=== PATIENT | male | born 1965 | race Caucasian/White ===

== ENCOUNTER 2019-06-30 13:53 | Emergency (ER) | payer SELFPAY ==
[2019-06-30 13:57] VITALS: TEMP 97.9; BMI 20.1
[2019-06-30] MEDS ORDERED: METOCLOPRAMIDE HCL INJECTION 10 MG/2 ML VIAL IVPB ONE (14:29)
[2019-06-30] MEDS ORDERED: SODIUM CHLORIDE 1,000 ML IV STA (14:29)
[2019-06-30] MEDS ORDERED: ACETAMINOPHEN 1000 MG/100 ML VIAL (NON FORMULARY) IVPB ONE (14:29)
[2019-06-30] MEDS ORDERED: ACETAMINOPHEN INJECTION 100 ML IVPB ONE (14:35)
[2019-06-30] MEDS ORDERED: METOCLOPRAMIDE HCL INJECTION 10 MG/2 ML VIAL ONE (14:35)
--- NOTE | 2019-06-30 14:43 | PDOC ---
History of Present Illness - General Chief Complaint: Headache Stated Complaint: HEADACHE Time Seen by Provider: 06/30/19 14:17 History Source: Patient Exam Limitations: No Limitations Past History - Past Medical History Allergies/Adverse Reactions: Allergies Allergy/AdvReac Type Severity Reaction Status Date / Time No Known Allergies Allergy Verified 06/30/19 13:57 COPD: No - Psycho Social/Smoking Cessation Hx Smoking History: Current every day smoker Information on smoking cessation initiated: No *Physical Exam - Vital Signs Last Vital Signs Temp Pulse Resp BP Pulse Ox 97.9 F 90 18 136/73 100 06/30/19 13:55 06/30/19 13:55 06/30/19 13:55 06/30/19 13:55 06/30/19 13:55 - Physical Exam General Appearance: No: Apparent Distress HEENT: positive: EOMI, YASSINE, Other (vision 20/20 R eye, 20/20 L eye, 20/20 both eyes) Respiratory/Chest: positive: Lungs Clear, Normal Breath Sounds. negative: Respiratory Distress Cardiovascular: positive: Regular Rhythm, Regular Rate, S1, S2. negative: Murmur Neurologic: positive: cotton weigher II-XII NML intact, Fully Oriented, Alert, Normal Mood/ Affect, Motor Strength 5/5, Other (normal gait) ED Treatment Course - RADIOLOGY Radiology Studies Ordered: Category Date Time Status HEAD CT WITHOUT CONTRAST [CT] Stat CT Scan 06/30/19 14:29 Ordered Medical Decision Making - Medical Decision Making 54 y/o M with hx of ?anemia presents with R sided RAMIREZ x 2 weeks, not worsened by anything. RAMIREZ is intermittent in nature and gradual in onset. Has tried several OTC meds for his headache including Tylenol, motrin and excedrin but still not feeling relief of RAMIREZ. Mentions only had a headache once before and that was last year when he had the concussion. Mentions has poor vision when it comes to reading at baseline but has not seen an whizzer hand or laboratory veterinarian as he does not like going to doctors. Denies fever, numbness/tingling/weakness of extremities, changes in gait, vomiting. Consider migraine Plan: Tylenol, Reglan, IVF Will get CT head given no hx of headaches 06/30/19 14:38 Patient feeling better after receiving meds Patient sent for CT head and pending results 06/30/19 15:44 Patient reports 0/10 pain currently Pending results of CT head Patient signed out to TONE Levine 06/30/19 16:05 Discharge - Discharge Information Problems reviewed: Yes Clinical Impression/Diagnosis: Headache Qualifiers: Headache type: unspecified Headache chronicity pattern: acute headache Intractability: not intractable Qualified Code(s): R51 - Headache Condition: Improved - Follow up/Referral - Patient Discharge Instructions - Post Discharge Activity
[2019-06-30] MEDS ORDERED: KETOROLAC TROMETHAMINE 30 MG/1 ML VIAL IVPUSH ONE (17:25)
[2019-06-30] MEDS ORDERED: CYCLOBENZAPRINE HCL 10 MG TABLET (FP) PO ONE (17:26)
--- NOTE | 2019-06-30 17:30 | PDOC ---
*Physical Exam - Vital Signs Last Vital Signs Temp Pulse Resp BP Pulse Ox 97.9 F 90 18 136/73 100 06/30/19 13:55 06/30/19 13:55 06/30/19 13:55 06/30/19 13:55 06/30/19 13:55 ED Treatment Course - Medications Given in the ED: ED Medications Discontinued Medications Generic Name Dose Route Start Last Admin Trade Name Jonathan PRN Reason Stop Dose Admin Acetaminophen 1,000 mg 06/30/19 14:29 06/30/19 14:47 Ofirmev Injection - IVPB 06/30/19 14:30 1,000 mg ONCE ONE Administration Sodium Chloride 1,000 mls @ 1,000 mls/hr 06/30/19 14:29 06/30/19 14:47 Normal Saline - IV 06/30/19 15:28 1,000 mls/hr ASDIR STA Administration Metoclopramide HCl 10 mg 06/30/19 14:29 06/30/19 14:43 Reglan Injection - IVPB 06/30/19 14:30 10 mg ONCE ONE Administration Medical Decision Making - Medical Decision Making 06/30/19 17:26 endorsed to me to follow CT scan and dispostion patient seen and examined states the pain is returning will give toradol 30mg IV and flexeril will d/c with follow up with Neuro. CT reviewed with Dr. Tolliver. Discharge - Discharge Information Problems reviewed: Yes Clinical Impression/Diagnosis: Headache Qualifiers: Headache type: unspecified Headache chronicity pattern: acute headache Intractability: not intractable Qualified Code(s): R51 - Headache Condition: Improved Disposition: HOME - Additional Discharge Information Prescriptions: Cyclobenzaprine HCl [Flexeril 10 mg] 10 mg PO TID #30 tablet Ibuprofen [Motrin -] 600 mg PO QID #28 tablet - Follow up/Referral Referrals: Wood Schuster MD [Staff Physician] - - Patient Discharge Instructions Patient Printed Discharge Instructions: DI for Headache Additional Instructions: Your Discharge Instructions: You must call primary care physician within 24 hours to arrange follow-up. Return to the Emergency Department with any new, persistent or worsening symptoms, for fever, chills, SOB, dizziness or any other concerning changes that may occur. Follow-up with neurology call for an appointment - Post Discharge Activity Work/Back to School Note: Back to Work
[2019-06-30] MEDS ORDERED: KETOROLAC TROMETHAMINE 30 MG/1 ML VIAL ONE (18:08)
[2019-06-30] MEDS ORDERED: CYCLOBENZAPRINE HCL 10 MG TABLET (FP) ONE (18:08)
[2019-06-30 18:22] VITALS: BP 132/68; PULSE 81
== END 2019-06-30 18:29 | disposition home or self-care (01) ==
LOC: JER 13:53
PROC: 3E033GC Introduction of Other Therapeutic Substance into Peripheral Vein, Percutaneous Approach (ICD-10-PCS; principal; 2019-06-30)
PROC: 3E033NZ Introduction of Analgesics, Hypnotics, Sedatives into Peripheral Vein, Percutaneous Approach (ICD-10-PCS; 2019-06-30)
PROC: 3E0333Z Introduction of Anti-inflammatory into Peripheral Vein, Percutaneous Approach (ICD-10-PCS; 2019-06-30)
DX: R51 Headache (principal)
CPT/HCPCS: 70450-TC; 99283-25; J0131; J7030

== ENCOUNTER 2019-08-26 17:02 | Emergency (ER) | payer OTHER ==
--- NOTE | 2019-08-26 17:13 | PDOC ---
Rapid Medical Evaluation Chief Complaint: Injury Time Seen by Provider: 08/26/19 17:11 Medical Evaluation: Allergies Allergy/AdvReac Type Severity Reaction Status Date / Time No Known Allergies Allergy Verified 08/26/19 17:11 08/26/19 17:11 This patient had brief medical evaluation in triage cc: injury to left great toe HPI: Patient sent by pmd to r/o infection of left great toe. Patient states s/p injury. A large box fell onto his toe. Report pain intermittently PE: appears well unlabored breathing Orders: xray of left foot/toe labs This patient will proceed to main ed for further evaluation Discharge Disposition - Diagnosis Injury of toe on left foot - Referrals - Patient Instructions - Post Discharge Activity
[2019-08-26 17:14] VITALS: BP 137/81; PULSE 80; TEMP 97.8; BMI 20.1
[2019-08-26 18:02] LABS: BASO % 1.2 % (0-2.0); EOS % 0.8 % (0-4.5); HEMATOCRIT 39.1 % (35.4-49); HEMOGLOBIN 12.9 GM/dL (11.7-16.9); LYMPH % 23.5 % (8-40); MCH 30.9 pg (25.7-33.7); MCHC 33.1 g/dl (32.0-35.9); MEAN CELL VOLUME 93.4 fl (80-96); MEAN PLT VOLUME 8.9 fl (7.5-11.1); MONO % 11.8 % (3.8-10.2); NEUT % 62.7 % (42.8-82.8); PLATELET COUNT 254 K/MM3 (134-434); RBC 4.19 M/mm3 (4.00-5.60); RDW 14.5 % (11.9-15.9); WHITE BLOOD COUNT 6.9 K/mm3 (4.0-10.0)
[2019-08-26 18:52] LABS: BLOOD UREA NITROGEN 24.3 mg/dL (7-18); CALCIUM 9.5 mg/dL (8.5-10.1); CREATININE 1.2 mg/dL (0.55-1.3); POTASSIUM 4.5 mmol/L (3.5-5.1); TOT PROT 7.2 g/dl (6.4-8.2)
[2019-08-26 18:53] LABS: BILIRUBIN,TOTAL 0.6 mg/dL (0.2-1)
--- NOTE | 2019-08-26 19:25 | PDOC ---
History of Present Illness - General Chief Complaint: Injury Stated Complaint: SENT BY DR Law Seen by Provider: 08/26/19 17:11 History Source: Patient - History of Present Illness Initial Comments: 08/26/19 19:38 54 YEAR OLD male reports 70 lbs heavy box to left great toe 3 days ago. patient reports increased swelling and pain. patient reports using a needle to drain the fluid at home and soaking foot at home with no relief in pain. patient was seen BY PCP Dr. blake who referred patient to the ED for evaluation r/ o infection. patient denies fever/ chills, no streaking, Past History - Past Medical History Allergies/Adverse Reactions: Allergies Allergy/AdvReac Type Severity Reaction Status Date / Time No Known Allergies Allergy Verified 08/26/19 17:11 Home Medications: Ambulatory Orders Cephalexin Monohydrate [Keflex -] 250 mg PO Q8H #21 capsule 08/26/19 Ibuprofen 600 mg PO QID PRN #20 tablet 08/26/19 Ibuprofen [Motrin -] 800 mg PO TID PRN 08/26/19 Oxycodone HCl/Acetaminophen [Percocet 5-325 mg Tablet] 1 - 2 tab PO Q6H PRN #7 tab MDD 4 08/26/19 Sulfamethoxazole/Trimethoprim [Bactrim Ds -] 1 tab PO BID #14 tablet 08/26/19 COPD: No - Psycho Social/Smoking Cessation Hx Smoking History: Current every day smoker Number of Cigarettes Smoked Daily: 10 Information on smoking cessation initiated: No Hx Alcohol Use: No Drug/Substance Use Hx: No *Physical Exam - Vital Signs Last Vital Signs Temp Pulse Resp BP Pulse Ox 97.8 F 80 17 137/81 99 08/26/19 17:11 08/26/19 17:11 08/26/19 17:11 08/26/19 17:11 08/26/19 17:11 - Physical Exam General Appearance: Yes: Appropriately Dressed Integumentary: positive: Other (left great toe nail partially off nail bed, bruising to left great toe with serous drainage. not warm to touch no erythema) Neurologic: positive: Fully Oriented, Alert ED Treatment Course - LABORATORY CBC & Chemistry Diagram: 08/26/19 17:31 08/26/19 17:31 - ADDITIONAL ORDERS Additional order review: Laboratory Results 08/26/19 08/26/19 17:31 17:31 Sodium 141 Potassium 4.5 Chloride 106 Carbon Dioxide 31 Anion Gap 4 L BUN 24.3 H Creatinine 1.2 Est GFR (CKD-EPI)AfAm 77.88 Est GFR (CKD-EPI)NonAf 67.19 Random Glucose 86 Hemoglobin A1c % 4.9 Calcium 9.5 Total Bilirubin 0.6 AST 11 L ALT 16 Alkaline Phosphatase 88 Total Protein 7.2 Albumin 4.0 Triglycerides 72 Cholesterol 161 Total LDL Cholesterol 78 HDL Cholesterol 71 H 08/26/19 17:31 RBC 4.19 MCV 93.4 MCHC 33.1 RDW 14.5 MPV 8.9 Neutrophils % 62.7 Lymphocytes % 23.5 Monocytes % 11.8 H Eosinophils % 0.8 Basophils % 1.2 ED Progress Note - Progress Note Progress Note: 08/26/19 19:48 A: left great toe fracture P: tetanus cephalexin/ bactrim pain control Discharge - Discharge Information Problems reviewed: Yes Clinical Impression/Diagnosis: Injury of toe on left foot Qualifiers: Encounter type: initial encounter Qualified Code(s): S99.922A - Unspecified injury of left foot, initial encounter Fractured great toe Qualifiers: Encounter type: initial encounter Fracture type: closed Phalanx: distal Fracture alignment: nondisplaced Laterality: left Qualified Code(s): S92.425A - Nondisplaced fracture of distal phalanx of left great toe, initial encounter for closed fracture Disposition: HOME - Additional Discharge Information Prescriptions: Cephalexin Monohydrate [Keflex -] 250 mg PO Q8H #21 capsule Ibuprofen 600 mg PO QID PRN #20 tablet PRN Reason: Pain Oxycodone HCl/Acetaminophen [Percocet 5-325 mg Tablet] 1 - 2 tab PO Q6H PRN #7 tab MDD 4 PRN Reason: Pain Sulfamethoxazole/Trimethoprim [Bactrim Ds -] 1 tab PO BID #14 tablet - Follow up/Referral Referrals: Errol Blake [Primary Care Provider] - Jayden Hughes DO [Staff Physician] - Call tomorrow Nghia Morley DPM [Staff Physician] - Call tomorrow Heber Jeffrey DPM [Staff Physician] - Call tomorrow - Patient Discharge Instructions Patient Printed Discharge Instructions: Toe Fracture Additional Instructions: elevate your leg as much as possible. take antibiotics as prescribed. 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
[2019-08-26] MEDS ORDERED: CEPHALEXIN MONOHYDRATE 500 MG CAPSULE (UD) PO ONE (19:37)
[2019-08-26] MEDS ORDERED: SULFAMETHOXAZOLE/TRIMETHOPRIM 800MG/160MG D.S. TABLET PO ONE (19:37)
[2019-08-26] MEDS ORDERED: DIPHTH,PERTUSS(ACELL),TET 0.5 ML DISP.SYRIN IM ONE ×3 (19:37→20:30)
[2019-08-26] MEDS ORDERED: KETOROLAC TROMETHAMINE 30 MG/1 ML VIAL IM ONE (19:43)
[2019-08-26] MEDS ORDERED: CEPHALEXIN MONOHYDRATE 500 MG CAPSULE (UD) ONE (20:05)
[2019-08-26] MEDS ORDERED: SULFAMETHOXAZOLE/TRIMETHOPRIM 800MG/160MG D.S. TABLET ONE (20:05)
[2019-08-26] MEDS ORDERED: KETOROLAC TROMETHAMINE 30 MG/1 ML VIAL ONE (20:05)
== END 2019-08-26 20:42 | disposition home or self-care (01) ==
LOC: JER 17:02
PROC: 3E0233Z Introduction of Anti-inflammatory into Muscle, Percutaneous Approach (ICD-10-PCS; principal; 2019-08-26)
PROC: 3E0234Z Introduction of Serum, Toxoid and Vaccine into Muscle, Percutaneous Approach (ICD-10-PCS; 2019-08-26)
DX: S92.425A Nondisplaced fracture of distal phalanx of left great toe, initial encounter for closed fracture (principal); W20.8XXA Other cause of strike by thrown, projected or falling object, initial encounter; Y93.89 Activity, other specified; Y92.69 Other specified industrial and construction area as the place of occurrence of the external cause; Y99.0 Civilian activity done for income or pay; F17.210 Nicotine dependence, cigarettes, uncomplicated
CPT/HCPCS: 36415; 73630-TC-LT; 73660-TC-LT-FY; 80053; 80061; 83036; 83721; 85025; 90715; 99284-25

== ENCOUNTER 2019-08-27 13:32 | Emergency (ER) | payer OTHER ==
--- NOTE | 2019-08-27 13:39 | PDOC ---
Rapid Medical Evaluation Time Seen by Provider: 08/27/19 13:37 Medical Evaluation: Allergies Allergy/AdvReac Type Severity Reaction Status Date / Time No Known Allergies Allergy Verified 08/26/19 17:11 08/27/19 13:38 CC: wound check PE: refused toe exam Orders: deferred Patient will proceed to ED for further evaluation. Discharge Disposition - Diagnosis Visit for wound check - Referrals - Patient Instructions - Post Discharge Activity
[2019-08-27 13:40] VITALS: BP 131/74; PULSE 75; TEMP 97.6; BMI 20.1
--- NOTE | 2019-08-27 15:12 | PDOC ---
History of Present Illness - General Chief Complaint: Wound Stated Complaint: REVISIT WOUND Time Seen by Provider: 08/27/19 13:37 History Source: Patient Exam Limitations: No Limitations - History of Present Illness Initial Comments: 08/27/19 15:07 Patient is a 54-year-old male who presents to the ED with a left great toe wound that he was told to come to the ED and have a wound check for. He states he was told that he has a great toe fracture after a metal box fell on his toe 4 days ago. He was advised to follow-up with podiatry and orthopedics but since it is a Worker's Compensation case he has to go through his social work case manager. The patient has been taking his antibiotics and his pain medication. He states that he feels better than he did yesterday. He states the pain is getting better as is the swelling. He denies any numbness or tingling. He denies any fevers or chills. Past History - Past Medical History Allergies/Adverse Reactions: Allergies Allergy/AdvReac Type Severity Reaction Status Date / Time No Known Allergies Allergy Verified 08/27/19 13:41 Home Medications: Ambulatory Orders Cephalexin Monohydrate [Keflex -] 250 mg PO Q8H #21 capsule 08/26/19 Ibuprofen 600 mg PO QID PRN #20 tablet 08/26/19 Ibuprofen [Motrin -] 800 mg PO TID PRN 08/26/19 Oxycodone HCl/Acetaminophen [Percocet 5-325 mg Tablet] 1 - 2 tab PO Q6H PRN #7 tab MDD 4 08/26/19 Sulfamethoxazole/Trimethoprim [Bactrim Ds -] 1 tab PO BID #14 tablet 08/26/19 COPD: No - Psycho Social/Smoking Cessation Hx Smoking History: Current every day smoker Number of Cigarettes Smoked Daily: 10 Information on smoking cessation initiated: No Hx Alcohol Use: Yes Drug/Substance Use Hx: No Review of Systems - Review of Systems Comments:: 08/27/19 15:08 - Review of Systems Able to Perform ROS?: Yes Constitutional: No: Fever, Chills, Loss of Appetite, Night Sweats, Weakness Cardiac (ROS): No: Chest Pain, Chest Tightness, Palpitations, Irregular Heart Beat, Edema ABD/GI: No: Nausea, Vomiting, Abdominal Pain, Diarrhea : No Dysuria, No Hematuria, No Frequency, No Urgency Musculoskeletal: No: Muscle Pain, Back Pain, Muscle Weakness, Neck Pain; positive left great toe injury and wound Integumentary: No: Lesions, Rash Neurological: No: Headache, Numbness, Tingling, Weakness, Speech Difficulties *Physical Exam - Vital Signs Last Vital Signs Temp Pulse Resp BP Pulse Ox 97.6 F 75 14 131/74 98 08/27/19 13:37 08/27/19 13:37 08/27/19 13:37 08/27/19 13:37 08/27/19 13:37 - Physical Exam 08/27/19 15:09 - Physical Exam General Appearance: Nourished, Appropriately Dressed, No Distress Neck: Supple, No Lymphadenopathy (R), No Lymphadenopathy (L), No Rigidity, No Decreased range of motion Respiratory/Chest: Lungs Clear, Normal Breath Sounds. No Respiratory Distress, No Accessory Muscle Use Cardiovascular: Regular Rhythm, Regular Rate, S1, S2 Gastrointestinal/Abdominal: Normal Bowel Sounds, Soft. Non-tender, No Guarding , No Rebound, No Rigidity Musculoskeletal: Normal Inspection. Left great toe with moderate swelling and ecchymosis appreciated. Toenail appears to be avulsed but currently intact. Brisk capillary refill distally. Wound on the dorsal aspect of the toe is without any drainage or foul odor. Does not appear overtly infected. No significant cellulitis appreciated. Moderate tenderness to palpation to the entire great toe. Wound appears to be healing well. Extremity: Normal Capillary Refill, Normal Inspection Integumentary: Normal Color, Dry. No Rash Neurologic: assembly detailer II-XII NML intact, Fully Oriented, Alert, Normal Mood/Affect, Normal Response Medical Decision Making - Medical Decision Making 08/27/19 15:10 Assessment: Patient is a 54-year-old male with a left great toe crush injury and wound. Who presents for a wound check. Plan: His wound appears to be well-healing and without overt infection or purulent discharge. He should continue his antibiotics as prescribed. He should take the pain medication as prescribed but only as needed. He should ice and elevate his foot. He should follow-up with Worker's Compensation and his pipe inspector in order to get podiatry/orthopedic follow-up. The patient understands this and will follow-up accordingly. He has been encouraged to return to the emergency department for high fevers, shaking chills, purulent drainage or any other worsening symptoms. He understands and agrees with this treatment plan and he is stable for discharge. Discharge - Discharge Information Problems reviewed: Yes Clinical Impression/Diagnosis: Visit for wound check Open wound of left great toe with damage to nail Qualifiers: Encounter type: subsequent encounter Qualified Code(s): S91.202D - Unspecified open wound of left great toe with damage to nail, subsequent encounter Condition: Stable Disposition: HOME - Follow up/Referral Referrals: Errol Mendoza [Primary Care Provider] - 24 hours - Patient Discharge Instructions Patient Printed Discharge Instructions: DI for Crush Injury Additional Instructions: Ice and elevate your left foot. Take the antibiotics as prescribed and complete the entire course even if you are feeling well. Be sure to take the pain medication but only as needed. Follow-up with Worker's Compensation and find out who your social work case manager is so they can assign you a wheel filler/ orthopedist. Return to the emergency department for high fevers, shaking chills , pus from your wound, worsening pain or any other worsening symptoms. - Post Discharge Activity Work/Back to School Note: Back to Work
== END 2019-08-27 15:37 | disposition home or self-care (01) ==
LOC: JER 13:32
DX: Z51.89 Encounter for other specified aftercare (principal); S91.202D Unspecified open wound of left great toe with damage to nail, subsequent encounter; W20.8XXD Other cause of strike by thrown, projected or falling object, subsequent encounter
CPT/HCPCS: 99281-25